=== PATIENT | female | born 1970 | race Caucasian/White ===

== ENCOUNTER 2016-07-31 18:27 | Emergency (ER) | payer BC, MEDICAID ==
[2016-07-31 18:38] VITALS: BP 167/80
[2016-07-31] MEDS ORDERED: Magnesium Sulfate/Water 2 GM in Premix Bag 1 BAG IV ONE (18:40)
[2016-07-31] MEDS: Albuterol/Ipratropium 3.0-0.5 MG/3 ML Neb Soln ONE ×2 (18:40→18:47)
[2016-07-31] MEDS ORDERED: Albuterol/Ipratropium 3.0-0.5 MG/3 ML Neb Soln ONE (18:41)
[2016-07-31] MEDS ORDERED: Sodium Chloride 0.9% 10 ML Syringe FLUSH PRN (18:42)
--- NOTE | 2016-07-31 18:47 | EDM.PDOC ---
ED HISTORY OF PRESENT ILLNESS - General Chief Complaint: Respiratory Problem Stated Complaint: SOB Time Seen by Provider: 07/31/16 18:41 Source of Information: Reports: Patient History Limitations: Reports: Respiratory distress - History of Present Illness INITIAL COMMENTS - FREE TEXT/NARRATIVE: Patient is a 45-year-old female who presents to the ED with O2 sats of 86% on room air complaining of severe respiratory distress. Patient only able to speak in few word sentences. States developed an upper respiratory infection that started approximately 2 days ago. She's been experiencing worsening shortness of breath since onset with productive cough. She been utilizing albuterol inhaler with minimal change. She notes 2 hours ago the symptoms have severely worsened thus she was brought to the ED for evaluation and treatment. Denies any history of asthma but notes is on a albuterol inhaler for intermittent wheezing, coughing, shortness of breath. She has been experiencing low grade fever. She denies any body aches. Timing/Duration: Reports: Constant, Getting worse Severity: severe Location, General: Reports: chest (tightness) Improves with: Reports: None Worsens with: Reports: Other (exertion) Context, General: Reports: Other (URI) Associated Symptoms (General): Reports: cough w sputum, fever/chills, loss of appetite, malaise, nausea/vomiting, shortness of breath. 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 (see below) (albuterol inhaler) - Related Data Allergies/ADRs: Allergies Allergy/AdvReac Type Severity Reaction Status Date / Time levofloxacin [From Levaquin] Allergy Rash Verified 07/31/16 18:30 Home Meds: Home Meds Doxycycline [Vibramycin] 100 mg PO Q12HR #20 cap 07/31/16 [Rx] Prednisone [IJD: predniSONE] 40 mg PO WITHBREAKFAST #10 tab 07/31/16 [Rx] guaiFENesin [Mucinex] 600 mg PO BID #20 tab.er.12h 07/31/16 [Rx] ED ROS GENERAL - Review of Systems Review Of Systems: See Below Constitutional: Reports: fever, chills, malaise, decreased appetite Respiratory: Reports: Shortness of Breath, Cough, Sputum Cardiovascular: Reports: Chest pain (Tightness), Dyspnea on exertion GI/Abdominal: Denies: Abdominal pain, Nausea, Vomiting ED EXAM, GENERAL - Physical Exam Exam: See Below Exam Limited By: Respiratory distress General Appearance: alert, WD/WN, severe distress Eye Exam: bilateral eye: PERRL Ears: hearing grossly normal Nose: normal inspection Throat/Mouth: Normal voice, No airway compromise Neck: normal inspection, supple Respiratory/Chest: respiratory distress, decreased breath sounds (Throughout), wheezing (Throughout all lung doan), accessory muscle use Cardiovascular: normal peripheral pulses, no murmur, tachycardia Peripheral Pulses: 2+: radial (L) GI/Abdominal: normal bowel sounds, soft, non tender Back Exam: normal inspection Extremities: normal inspection, non-tender, no pedal edema Neurological: alert, oriented, CN II-XII intact, normal cognition, no motor/ sensory deficits Psychiatric: normal affect, normal mood Skin Exam: Warm, Dry, Intact, Normal color Course - Vital Signs Last Recorded V/S: Last Vital Signs Temp 97.1 F 07/31/16 18:32 Pulse 85 07/31/16 18:32 Resp 33 H 07/31/16 18:32 BP 167/80 H 07/31/16 18:32 Pulse Ox 94 L 07/31/16 18:47 - Orders/Labs/Meds Orders: Active Orders 24 hr Category Date Time Status EKG Documentation Completion [RC] STAT Care 07/31/16 20:15 Active Peripheral IV Care [RC] . DIRECTED Care 07/31/16 18:42 Active CXR [Chest 1V Frontal] [CR] Stat Exams 07/31/16 18:43 Taken Magnesium Sulfate/Water [Magnesium Sulfate 2 GM in Med 07/31/16 18:40 Active Water 50 ML] 2 gm Premix Bag 1 bag IV ONETIME Sodium Chloride 0.9% [Saline Flush] Med 07/31/16 18:42 Active 10 ml FLUSH ASDIRECTED PRN Peripheral IV Insertion Adult [OM.PC] Routine Oth 07/31/16 18:42 Ordered Medication Orders Magnesium Sulfate 2 gm/ Premix 50 mls @ 25 mls/hr IV ONETIME ONE Stop: 07/31/16 20:39 Last Admin: 07/31/16 18:49 Dose: 25 mls/hr Sodium Chloride (Saline Flush) 10 ml FLUSH ASDIRECTED PRN PRN Reason: Keep Vein Open Last Admin: 07/31/16 18:51 Dose: 10 ml Labs: Laboratory Tests 07/31/16 07/31/16 Range/Units 18:34 18:34 WBC 10.34 H (3.98-10.04) K/mm3 RBC 4.53 (3.98-5.22) M/mm3 Hgb 13.9 (11.2-15.7) gm/L Hct 41.7 (34.1-44.9) % MCV 92.1 (79.4-94.8) fl MCH 30.7 (25.6-32.2) pg MCHC 33.3 (32.2-35.5) g/dl RDW Std Deviation 44.4 (36.4-46.3) fL Plt Count 263 (182-369) K/mm3 MPV 11.5 (9.4-12.3) fl Neut % (Auto) 75.1 H (34.0-71.1) % Lymph % (Auto) 11.8 L (19.3-51.7) % Andrew % (Auto) 7.7 (4.7-12.5) % Eos % (Auto) 4.7 (0.7-5.8) Baso % (Auto) 0.6 (0.1-1.2) % Neut # 7.76 H (1.56-6.13) K/mm3 Lymph # 1.22 (1.18-3.74) K/mm3 Andrew # 0.80 H (0.24-0.36) K/mm3 Eos # 0.49 H (0.04-0.36) K/mm3 Baso # 0.06 (0.01-0.08) K/mm3 Sodium 138 (136-145) mEq/L Potassium 4.1 (3.5-5.1) mEq/L Chloride 102 (98-107) mEq/L Carbon Dioxide 24 (21-32) mEq/L Anion Gap 16.1 H (5-15) BUN 10 (7-18) mg/dL Creatinine 0.8 (0.55-1.02) mg/dL Est Cr Clr Drug Dosing 88.18 mL/min Estimated GFR (MDRD) > 60 (>60) mL/min BUN/Creatinine Ratio 12.5 L (14-18) Glucose 110 H (74-106) mg/dL Calcium 8.5 (8.5-10.1) mg/dL Total Bilirubin 0.3 (0.2-1.0) mg/dL AST 22 (15-37) U/L ALT 31 (14-59) U/L Alkaline Phosphatase 45 L (46-116) U/L Troponin I < 0.017 (0.00-0.056) ng/mL C-Reactive Protein 4.3 H* (<1.0) mg/dL Total Protein 7.5 (6.4-8.2) g/dl Albumin 3.6 (3.4-5.0) g/dl Globulin 3.9 gm/dL Albumin/Globulin Ratio 0.9 L (1-2) Meds: Medications Generic Name Dose Route Start Last Admin Trade Name Freq PRN Reason Stop Dose Admin Magnesium Sulfate 2 gm/ Premix 50 mls @ 25 mls/hr 07/31/16 18:40 07/31/16 18: 49 IV 07/31/16 20:39 25 mls/hr ONETIME ONE Administration Sodium Chloride 10 ml 07/31/16 18:42 07/31/16 18:51 Saline Flush FLUSH 10 ml ASDIRECTED PRN Administration Keep Vein Open Discontinued Medications Generic Name Dose Route Start Last Admin Trade Name Freq PRN Reason Stop Dose Admin Albuterol/Ipratropium Confirm 07/31/16 18:38 07/31/16 18:47 Duoneb 3.0-0.5 Mg/3 Ml Administered 07/31/16 18:39 3 ml Dose Administration 3 ml .ROUTE .STK-MED ONE Albuterol/Ipratropium Confirm 07/31/16 18:41 07/31/16 18:47 Duoneb 3.0-0.5 Mg/3 Ml Administered 07/31/16 18:42 Not Given Dose 3 ml .ROUTE .STK-MED ONE Doxycycline Hyclate 200 mg 07/31/16 19:38 07/31/16 19:48 Vibramycin PO 07/31/16 19:39 200 mg ONETIME ONE Administration Ceftriaxone Sodium 1 gm/ 100 mls @ 200 mls/hr 07/31/16 19:37 Sodium Chloride IV 07/31/16 20:06 ONETIME ONE Prednisone 40 mg 07/31/16 19:01 07/31/16 19:12 Prednisone PO 07/31/16 19:02 40 mg ONETIME ONE Administration - Re-Assessments/Exams Free Text/Narrative Re-Assessment/Exam: Patient is a 42-year-old female who presents to the ED in severe respiratory distress. O2 sats or 86% on room air. Patient increased respiratory rate only able to speak in few word sentences. Examination listed decreased breath sounds with global expiratory wheezes and rhonchi to the bases. Patient was immediately placed on nasal cannula 2 L per minute brain are SpO2 sats in the low 90s. DuoNeb x2 was ordered. With administration of these nebulized treatments patients respiratory status significantly improved. Will obtain CXR , EKG, and blood work. Ordered 2g magnesium and prednisone 40 mg PO. 07/31/16 19:09 Reassessment, patient's work of breathing has improved after administration of the breathing treatments. She still has some intermittent bilateral expiratory wheezes. Vital signs are stable. 07/31/16 19:11 07/31/16 19:25 per nursing staff patient mentioned to them that she is on prednisone when she has similar respiratory symptoms. 193: X-ray reviewed with Dr. Vasquez, questionable right lower lobe infiltration. 07/31/16 19:34 labs reviewed: Blood cell count 10.34, hemoglobin is 13.9, neutrophil percent is 75.1, neutrophil #0.76, sodium 138, potassium 4.1, CO2 24 , creatinine 0.8, troponin less than 0.017, CRP is 4.3. Physical examination and findings consistent for right lower lobe pneumonia. Ordered rocephin 1 gram IVP and doxycycline 200mg mg PO. 07/31/16 19:39 reassessment, vital signs are stable. SpO2 is 99% on 2 L of supplemental 02. Respiratory rate is 19. 07/31/16 20:15 EKG: Sinus rhythm rate 82, with no acute ST changes noted. Patients SPO2 is 95% on room air. States she is feeling much better. Will discharge home once rocephin has been administered. Discharge instructions and prescriptions have been completed. Departure - Departure Time of Disposition: 20:10 Disposition: Home, Self-Care 01 Condition: fair Clinical Impression: Community acquired pneumonia Prescriptions: Doxycycline [Vibramycin] 100 mg PO Q12HR #20 cap Prednisone [IJD: predniSONE] 40 mg PO WITHBREAKFAST #10 tab guaiFENesin [Mucinex] 600 mg PO BID #20 tab.er.12h Referrals: Susie Bryant DO [Primary Care Provider] - Forms: ED Department Discharge, Return to Work/School Form Additional Instructions: Take the doxycycline, prednisone, mucinex as prescribed. Take 1-2 puffs of albuterol inhaler every 4 hours as needed for shortness of breath, wheezing, and cough. Followup with PCP at the conclusion of therapy to ensure resolution. Return to the E.D. for any new or worsening symptoms. - My Orders Last 24 Hours: My Active Orders 07/31/16 18:40 Magnesium Sulfate/Water [Magnesium Sulfate 2 GM in Water 50 ML] 2 gm Premix Bag 1 bag IV ONETIME 07/31/16 18:42 Peripheral IV Care [RC] . DIRECTED Sodium Chloride 0.9% [Saline Flush] 10 ml FLUSH ASDIRECTED PRN Peripheral IV Insertion Adult [OM.PC] Routine 07/31/16 18:43 CXR [Chest 1V Frontal] [CR] Stat 07/31/16 20:15 EKG Documentation Completion [RC] STAT - Assessment/Plan Last 24 Hours: My Active Orders 07/31/16 18:40 Magnesium Sulfate/Water [Magnesium Sulfate 2 GM in Water 50 ML] 2 gm Premix Bag 1 bag IV ONETIME 07/31/16 18:42 Peripheral IV Care [RC] . DIRECTED Sodium Chloride 0.9% [Saline Flush] 10 ml FLUSH ASDIRECTED PRN Peripheral IV Insertion Adult [OM.PC] Routine 07/31/16 18:43 CXR [Chest 1V Frontal] [CR] Stat 07/31/16 20:15 EKG Documentation Completion [RC] STAT
[2016-07-31] MEDS ORDERED: predniSONE 20 MG Tab PO ONE (19:01)
[2016-07-31] MEDS ORDERED: cefTRIAXone 1 GM in Sodium Chloride 0.9% 100 ML IV ONE (19:37)
[2016-07-31] MEDS ORDERED: Doxycycline 100 MG Cap PO ONE (19:38)
--- NOTE | 2016-08-01 08:40 | CR ---
Chest: Portable view of the chest was obtained. Comparison: No previous study. Heart size and mediastinum are within normal limits. Lung markings are slightly increased within the right base believed to be incidental. No acute infiltrates are definitely seen. Bony structures are grossly intact. Impression: 1. Nothing acute is appreciated on portable chest x-ray. If patient remains symptomatic, two-view chest x-ray then recommended. Diagnostic code #2
== END 2016-07-31 21:15 | disposition home or self-care (01) ==
LOC: SUPCPDRO 18:27 → JD.ED 18:27
DX: J18.9 Pneumonia, unspecified organism (principal); Z79.899 Other long term (current) drug therapy
CPT/HCPCS: 36415; 71010; 80053; 84484; 85025; 86140; 93005; 94640; 94664; 96365; 96366; 96367; 99285; A9270; J0696; J7030; J7050; 99284; J3475

== ENCOUNTER 2016-12-15 09:03 | Emergency (ER) | payer BC ==
[2016-12-15] MEDS ORDERED: HYDROmorphone 1 MG/ML Syringe IM ONE (09:34)
--- NOTE | 2016-12-15 09:34 | EDM.PDOC ---
ED HPI GENERAL MEDICAL PROBLEM - General Chief Complaint: Back Pain or Injury Stated Complaint: BACK PAIN Time Seen by Provider: 12/15/16 09:28 Source of Information: Reports: Patient History Limitations: Reports: No Limitations - History of Present Illness INITIAL COMMENTS - FREE TEXT/NARRATIVE: 46-year-old female presents to the ED with a acute low back pain. She states this happened at work while pushing a large printer into its position. She will became aware of a sudden pop and strain in her low back and the pain is increased in intensity over the last 48 hours to the point that she can barely stand erect or hardly get out of bed. Eating and out of the vehicle is extremely difficult. Pain is into the right upper buttock but not down the posterior leg. He said occasional pains in her low back but never to this severity. Advil and Aleve are not helping the pain. She hasn't slept for the last 2 nights. Onset: Sudden Onset Date: 12/13/16 Onset Time: 14:00 Duration: Day(s): Location: Reports: Back (Right lower back) Quality: Reports: Ache, Stabbing, Throbbing, Other Severity: Severe (Hurts to deep breathe currently relates the pain as 10 out 10 with movement 8 out of 10 at rest.) Improves with: Reports: Rest Worsens with: Reports: Other (Standing and getting in and out of a car.), Movement Context: Reports: Activity (Pushing a machine back into place.). Denies: Exercise, Lifting, Sick Contact Associated Symptoms: Reports: No Other Symptoms Treatments GASKET FORMER: Reports: NSAIDS Back Pain Score (Numeric/FACES): 10 - Related Data Allergies Allergy/AdvReac Type Severity Reaction Status Date / Time levofloxacin [From Levaquin] Allergy Rash Verified 07/31/16 18:30 Home Meds: Home Meds Citalopram Hydrobromide [Celexa] 40 mg PO DAILY 12/15/16 [History] Diclofenac Sodium [Voltaren] 50 mg PO TIDMEALS #30 tab.ec 12/15/16 [Rx] Propranolol [Inderal] 0 mg PO DAILY 12/15/16 [History] buPROPion [Wellbutrin] 150 mg PO DAILY 12/15/16 [History] l-Norgest/E.estradion-E.estrad [Seasonique 0.15-0.03-0.01] 1 tab PO DAILY [History] oxyCODONE HCl/Acetaminophen [Percocet 5-325 mg Tablet] 1 - 2 each PO Q4H PRN # 20 tablet 12/15/16 [Rx] predniSONE [Deltasone] 20 mg PO ASDIRECTED #15 tablet 12/15/16 [Rx] Past Medical History Respiratory History: Reports: Asthma Musculoskeletal History: Reports: Arthritis, Back Pain, Chronic, Other (See Below) Other Musculoskeletal History: 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 Neurological History: Reports: Migraines Psychiatric History: Reports: None, Anxiety Social & Family History - Tobacco Use Smoking Status *Q: Never Smoker Second Hand Smoke Exposure: No - Caffeine Use Caffeine Use: Reports: Soda - Recreational Drug Use Recreational Drug Use: No - Living Situation & Occupation Living situation: Reports: , Single Occupation: Employed ED ROS GENERAL - Review of Systems Review Of Systems: See Below Constitutional: Reports: No Symptoms HEENT: Reports: No Symptoms Respiratory: Reports: No Symptoms, Other Cardiovascular: Reports: No Symptoms (Deep breathing makes her right back pain worse.) Endocrine: Reports: No Symptoms GI/Abdominal: Reports: No Symptoms : Reports: No Symptoms Musculoskeletal: Reports: Back Pain Skin: Reports: No Symptoms (See history of present illness) Neurological: Reports: No Symptoms Psychiatric: Reports: No Symptoms Hematologic/Lymphatic: Reports: No Symptoms Immunologic: Reports: No Symptoms ED EXAM,LOWER BACK PAIN/INJURY - Physical Exam Exam: See Below Exam Limited By: No Limitations General Appearance: Alert, Moderate Distress Back Exam: Muscle Spasm (Patient has marked paraspinal muscle spasm on the right side traveling up his highest T6. Point of maximal tenderness appears to be L3-L4 or L4-L5 and L5-S1 facet joints. There is moderate pain throughout the superior half of the right SI joint as well.) Extremities: Normal Inspection ( Is no pain on the left side.), Normal Range of Motion, Non-Tender, No Pedal Edema Neurological: Normal Mood/Affect, Normal Dorsiflexion, CN II-XII Intact, Normal Reflexes (Antalgic gait), Oriented x 3. No: Normal Gait DTR - Lower Extremities: 1+: Ankle (R), Ankle (L), 2+: Knee (R), Knee (L) Psychiatric: Normal Affect, Normal Mood Skin Exam: Warm, Dry, Intact, Normal Color, No Rash Lymphatic: No Adenopathy Course - Vital Signs Last Recorded V/S: Last Vital Signs Temp 35.8 C 12/15/16 09:11 Pulse 71 12/15/16 09:11 Resp 20 12/15/16 09:11 BP 115/75 12/15/16 09:11 Pulse Ox 99 12/15/16 09:11 - Orders/Labs/Meds Orders: Active Orders 24 hr Category Date Time Status Lumbar Spine 2 or 3V [CR] Stat Exams 12/15/16 09:36 Taken Meds: Medications Discontinued Medications Generic Name Dose Route Start Last Admin Trade Name Ashtyn PRN Reason Stop Dose Admin Hydromorphone HCl 1 mg 12/15/16 09:34 12/15/16 09:43 Dilaudid IM 12/15/16 09:35 1 mg ONETIME ONE Administration Promethazine HCl 25 mg 12/15/16 09:35 12/15/16 09:42 Phenergan IM 12/15/16 09:36 25 mg ONETIME ONE Administration - Radiology Interpretation Free Text/Narrative:: 46-year-old female attends the ED with severe right low back pain. Injured in the workplace on Friday she December 13 when she was pushing a large plantar back into its position she felt sudden pop and tearing sensation in her right lower back. She has marked paraspinal muscle spasm with maximal point tenderness over L4-L5 and L5-S1 facet joints on the right side. Is no evidence of nerve root irritation. Appears to be a mechanical low back pain ie. facet joint strain. Will have AP and lateral X-ray done of the lumbar spine. Will give her an IM injection of Dilaudid 1 mg with Phenergan 25 mg now to relieve pain and to provide some sedation so she get some sleep. She will be placed on Voltaren 50 mg 3 times daily for the next 10 days to relieve pain and inflammation. Prednisone 20 mg twice daily for the next 5 days and then 1 tablet in morning only for another 5 days. Percocet 5/325 milligrams tablets one or 2 every 4-6 hours for pain relief. Will likely be off work for the next 3-4 days. Advise chiropractic manipulation if amenable. - Re-Assessments/Exams Free Text/Narrative Re-Assessment/Exam: 12/15/16 10:32 x-rays of the lumbar spine reveal normal alignment. No compression fractures. There is evidence of previous trauma to the T12-L1 vertebra with anterior osteophyte formation and disc is very well gone. There is been some previous trauma to the lumbar spine in the past. Patient was advised of this finding. She will be discharged to home with a note given to be off work for the next 3 days. She'll be placed on Voltaren 50 mg 3 times daily for 10 days. Deltasone 20 mg with breakfast and supper for 5 days then 1 tablet in the morning only for another 5 days. Percocet 5/3/25 milligrams tablets one or 2 every 4-6 hours for pain relief as needed. Advised chiropractic manipulation if she is open to this suggestion. Heat pack to the area one half hour out of every 4 hours Departure - Departure Time of Disposition: 10:33 Disposition: Home, Self-Care 01 Condition: Fair Clinical Impression: Acute myofascial strain of lumbosacral region Qualifiers: Encounter type: initial encounter Qualified Code(s): S39.012A - Strain of muscle, fascia and tendon of lower back, initial encounter - Discharge Information Prescriptions: Diclofenac Sodium [Voltaren] 50 mg PO TIDMEALS #30 tab.ec oxyCODONE HCl/Acetaminophen [Percocet 5-325 mg Tablet] 1 - 2 each PO Q4H PRN # 20 tablet PRN Reason: pain relief. predniSONE [Deltasone] 20 mg PO ASDIRECTED #15 tablet Instructions: Lumbosacral Strain Referrals: Susie Bryant DO [Primary Care Provider] - Forms: ED Department Discharge, ED Return to Work/School Form Additional Instructions: Evaluation the emergency room today in regards to acute onset of severe right- sided lumbar or low back pain. Examination suggests facet joint inflammation particularly at L3-L4 L4-L5 level in the right lower back. This is causing severe paraspinal muscle spasm. X-rays of the back are within normal limits in terms of alignment and disc height. However there has been previous trauma at the lower thoracic vertebra T12 and the lumbar 1 vertebra with evidence of osteo -arthritic changes developing and the disc is nearly completely gone. This is likely because of some chronic mid low back pain. Treatment is heat packs to the area at this time for one half hour out of every 4 hours. Dedication to be anti-inflammatory Voltaren 50 mg 3 times daily for the next 10 days to reduce pain and inflammation. Percocet tabs 5/325 milligrams one or 2 every 4-6 hours needed for pain relief. Deltasone 20 mg with breakfast and supper for 5 days then 1 tab in the morning only for further 5 days to reduce pain and inflammation. Note , both the anti-inflammatory and Deltasone take good 36 hours to work. Suggest chiropractic manipulation if you are open to this suggestion. Heat pack to the area one half hour out of every 4 hours may be beneficial as well. Note written to be off work for the next 3 days until the low back pain settles. - My Orders Last 24 Hours: My Active Orders 12/15/16 09:36 Lumbar Spine 2 or 3V [CR] Stat - Assessment/Plan Last 24 Hours: My Active Orders 12/15/16 09:36 Lumbar Spine 2 or 3V [CR] Stat
[2016-12-15] MEDS ORDERED: Promethazine 25 MG/ML SDV IM ONE (09:35)
[2016-12-15 09:47] VITALS: BP 115/75
--- NOTE | 2016-12-16 08:14 | CR ---
Lumbar spine: AP and lateral views of the lumbar spine were obtained. Comparison: No previous lumbar spine imaging. Mild disc space narrowing is seen within the lower thoracic spine and at L1-L2. Mild posterior disc space narrowing is noted at L5-S1. Vertebral body heights are maintained. Scattered endplate osteophytes are seen within the lower thoracic and lumbar spine. Minimal scoliosis is present. Pedicles as well as visualized transverse and spinous processes are intact. Mild degenerative sclerosis is seen within the right sacroiliac joint. Impression: 1. Mild degenerative change as described above. Diagnostic code #2
== END 2016-12-15 10:50 | disposition home or self-care (01) ==
LOC: JD.ED 09:03
DX: S39.012A Strain of muscle, fascia and tendon of lower back, initial encounter (principal); J45.909 Unspecified asthma, uncomplicated; Z88.1 Allergy status to other antibiotic agents; Z79.899 Other long term (current) drug therapy; X50.9XXA Other and unspecified overexertion or strenuous movements or postures, initial encounter
CPT/HCPCS: 72100; 96372; 99283; J1170; J2550

== ENCOUNTER 2017-06-05 16:41 | Emergency (ER) | payer OTHER, BC ==
[2017-06-05 17:05] VITALS: BP 112/78
[2017-06-05] MEDS ORDERED: HYDROmorphone 1 MG/ML Syringe IM ONE (17:55)
[2017-06-05] MEDS ORDERED: Cyclobenzaprine 10 MG Tab PO ONE (17:56)
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
== END 2017-06-05 18:17 | disposition home or self-care (01) ==
LOC: JD.ED 16:41
DX: M54.5 Low back pain (principal); I10 Essential (primary) hypertension; J45.909 Unspecified asthma, uncomplicated; F41.9 Anxiety disorder, unspecified; Z79.899 Other long term (current) drug therapy; Z88.1 Allergy status to other antibiotic agents
CPT/HCPCS: 96372; 99283; A9270; J1170

== ENCOUNTER 2017-11-20 17:06 | Emergency (ER) | payer BC, OTHER ==
[2017-11-20] MEDS ORDERED: HYDROmorphone 0.5 MG/0.5 ML SYRINGE IVPUSH ONE ×3 (17:36→19:03)
[2017-11-20] MEDS ORDERED: Ondansetron 4 MG/2 ML SDV IVPUSH ONE (17:36)
[2017-11-20] MEDS ORDERED: Sodium Chloride 0.9% 10 ML Syringe FLUSH PRN (17:36)
[2017-11-20] MEDS ORDERED: Bacitracin Oint 15 GM Tube TOP ONE (18:46)
[2017-11-20] MEDS ORDERED: Ketorolac 30 MG/ML SDV IVPUSH ONE (19:23)
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
[2017-11-20 22:08] VITALS: BP 132/74
== END 2017-11-20 20:59 | disposition home or self-care (01) ==
LOC: JD.ED 17:06
DX: T23.202A Burn of second degree of left hand, unspecified site, initial encounter (principal); T23.172A Burn of first degree of left wrist, initial encounter; I10 Essential (primary) hypertension; J45.909 Unspecified asthma, uncomplicated; Z88.1 Allergy status to other antibiotic agents; Z79.899 Other long term (current) drug therapy; X08.8XXA Exposure to other specified smoke, fire and flames, initial encounter
CPT/HCPCS: 96374; 96375; 96376; 99284; A9270; J1170; J1885; J2405; J7050

== ENCOUNTER 2018-01-02 07:00 | Day surgery (SDC) | payer BC ==
[~2018-01-02 07:00] MED LIST: Lactated Ringers 1,000 ML IV SCH; Lidocaine 1%/Sod Bicarbonate in NS 8.4% 1 ML Syringe IDERM PRN; Sodium Chloride 0.9% 10 ML Syringe FLUSH PRN
[2018-01-02] MEDS ORDERED: fentaNYL 100 MCG/2 ML SDV ONE (07:19)
[2018-01-02] MEDS ORDERED: Propofol 200 MG/20 ML SDV ONE ×2 (07:19→07:55)
[2018-01-02] MEDS ORDERED: Lidocaine 1% 4 ML ONE (07:20)
--- NOTE | 2018-01-02 07:36 | PCM.PREANE ---
Preanesthetic Assessment - Procedure Proposed Procedure: EGD with biopsy - Anesthesia/Transfusion/Family Hx Anesthesia History: No Prior Anesthesia Family History of Anesthesia Reaction: No Transfusion History: No Prior Transfusion(s) - Review of Systems General: No Symptoms Pulmonary: Other (asthma, uses albuterol inhaler prn sparingly ) Cardiovascular: No Symptoms Gastrointestinal: Other (GERD) Neurological: Headache (occasional migraine) Other: Reports: Depression, Anxiety - Physical Assessment NPO Status Date: 01/01/18 NPO Status Time: 21:00 Pulse: 66 O2 Sat by Pulse Oximetry: 95 Respiratory Rate: 16 Blood Pressure: 111/66 Temperature: 36.5 C Height: 1.7 m Weight: 111 kg ASA Class: 2 Mental Status: Alert & Oriented x3 Airway Class: Mallampati = 1 Dentition: Reports: Normal Dentition Thyro-Mental Finger Breadths: 3 Mouth Opening Finger Breadths: 3 ROM/Head Extension: Full Lungs: Clear to Auscultation, Normal Respiratory Effort Cardiovascular: Regular Rate, Regular Rhythm - Allergies Allergies/Adverse Reactions: Allergies Allergy/AdvReac Type Severity Reaction Status Date / Time levofloxacin [From Levaquin] Allergy Rash Verified 11/20/17 21:56 - Blood Blood Available: No Product(s) Available: None - Anesthesia Plan Pre-Op Medication Ordered: None Beta Leta: Propranolol (for migraines) Med Last Dose Date: 01/01/18 Med Last Dose Time: 19:00 - Acknowledgements Anesthesia Type Planned: MAC Pt an Appropriate Candidate for the Planned Anesthesia: Yes Alternatives and Risks of Anesthesia Discussed w Pt/Guardian: Yes Pt/Guardian Understands and Agrees with Anesthesia Plan: Yes PreAnesthesia Questionnaire Cardiovascular History: Reports: Hypertension Respiratory History: Reports: Asthma Musculoskeletal History: Reports: Arthritis, Back Pain, Chronic, Other (See Below) Other Musculoskeletal History: 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 Neurological History: Reports: Migraines Psychiatric History: Reports: None, Anxiety - SUBSTANCE USE Smoking Status *Q: Never Smoker Second Hand Smoke Exposure: No Recreational Drug Use History: No - HOME MEDS Home Medications: Home Meds Propranolol [Inderal] 0 mg PO BEDTIME 12/15/16 [History] buPROPion [Wellbutrin] 150 mg PO DAILY 12/15/16 [History] Acetaminophen/oxyCODONE [Percocet 325-5 MG] 1 tab PO Q4HR PRN #30 tab 11/20/17 [ Rx] Diclofenac Potassium [Zipsor] 25 mg PO DAILY PRN 11/20/17 [History] Seraquil 10 mg PO DAILY 11/20/17 [History] Vortioxetine Hydrobromide [Trintellix] 30 mg PO DAILY 11/20/17 [History] - CURRENT (IN HOUSE) MEDS Current Meds: Current Medications Lactated Ringer's (Ringers, Lactated) 1,000 mls @ 125 mls/hr IV ASDIRECTED JACKIE Stop: 01/02/18 23:00 Lidocaine/Sodium Bicarbonate (Buffered Lidocaine 1% In Ns 8.4%) 0.25 ml IDERM ONETIME PRN PRN Reason: Prior to IV Start Stop: 01/02/18 18:00 Sodium Chloride (Saline Flush) 10 ml FLUSH ASDIRECTED PRN PRN Reason: Keep Vein Open Stop: 01/02/18 18:00 Discontinued Medications Fentanyl (Sublimaze) Confirm Administered Dose 100 mcg .ROUTE .STK-MED ONE Stop: 01/02/18 07:20 Lidocaine HCl (Xylocaine-Mpf 1%) Confirm Administered Dose 4 mls @ as directed .ROUTE .STK-MED ONE Stop: 01/02/18 07:21 Propofol (Diprivan 20 Ml) Confirm Administered Dose 200 mg .ROUTE .STK-MED ONE Stop: 01/02/18 07:20
--- NOTE | 2018-01-02 08:05 | PCM48HPAN ---
Post Anesthesia Note - EVALUATION WITHIN 48HRS OF ANESTHETIC Vital Signs in Normal Range: Yes Patient Participated in Evaluation: Yes Respiratory Function Stable: Yes Airway Patent: Yes Cardiovascular Function Stable: Yes Hydration Status Stable: Yes Pain Control Satisfactory: Yes Nausea and Vomiting Control Satisfactory: Yes Mental Status Recovered: Yes Pulse Rate: 64 SaO2: 97 Resp Rate: 16 Temperature: 36.2 C Blood Pressure: 114/77
--- NOTE | 2018-01-02 08:13 | PCM.OPNOTE ---
- General Post-Op/Procedure Note Date of Surgery/Procedure: 01/02/18 Operative Procedure(s): EGD with biopsy Findings: Normal anatomy Pre Op Diagnosis: GERD Post-Op Diagnosis: GERD Anesthesia Technique: MAC Primary Surgeon: Renetta Griffiths Anesthesia Provider: Marin Toribio Pathology: 1. Biopsy of GE junction 2. Biopsy of antrum for H. pylori 3. Biopsy of fundus Fluid Replacement, Intraop: 0 (see anesthesia record) Output, Urine Amount: 0 EBL in mLs: 0 Complications: None apparent Condition: Good
--- NOTE | 2018-01-02 08:21 | PCM.PRNOTE ---
- Free Text/Narrative Note: Operative Report Date of procedure: 01/02/18 Preoperative diagnosis: GERD Postoperative diagnosis: GERD Surgeon: Renetta Griffiths M.D. Procedure: EGD with biopsy Anesthesia: MAC Anesthesiologist: Marin Toribio CRNA IV fluids: see anesthesia record Estimated blood loss: 0 mL Specimens: 1. Biopsy of GE junction 2. Biopsy of Antrum for H. Pylori 3. Biopsy of fundus Indication: The patient is a 47 -year-old lady who presented with a history of longstanding GERD. The patient's main complaint was recurrence of symptoms when attempting to wean her PPI. She had never undergone a screening or surveillance EGD. The patient was consented for an EGD with intervention. Risk of bleeding and perforation were discussed. The patient's consent was obtained Description of the procedure: The patient was taken to the endoscopy suite and placed on hemodynamic monitoring. The nurse assembler dielectric heater induced MAC anesthesia. A bite block was placed. The patient was positioned in the left lateral decubitus position. A timeout was performed. The endoscope was gently placed into the mouth to the back of the pharynx and introduced into the esophagus. The scope was gently advanced under direct visualization down to the level of the lower esophageal sphincter. The Z line was noted at 38 cm from the mouth. Biopsies were taken of the mucosa at the Z- line. The stomach was then entered. Normal rugal folds were noted. The scope was advanced into the antrum. We noted no abnormality. The antrum was biopsied for H. pylori. The pylorus was then entered and the first and second portion of the duodenum was inspected. There were no ulcerations in the duodenum. The scope was then retroflexed in the cardia and fundus were investigated. There is no evidence of any hiatal hernia. The fundal mucosa had a slight polypoid appearance, and a biopsy was taken. No other abnormalities were noted. The scope was then withdrawn while inspecting the esophagus. There was no esophagitis. The procedure was terminated. the patient tolerated the procedure well without any evidence of complications. Instructions: The patient will return to the PACU and may resume clear liquid diet and advance as tolerated. She will be maintained on a PPI. Plan for reevaluation with repeat scope pending her pathology. Renetta Griffiths MD General Surgery
[2018-01-02 08:44] VITALS: BP 118/61
== END 2018-01-02 08:44 | disposition home or self-care (01) ==
LOC: JD.SDS 07:00
PROVIDERS: ATTEND Surgery
DX: K21.9 Gastro-esophageal reflux disease without esophagitis (principal); K29.50 Unspecified chronic gastritis without bleeding; K20.0 Eosinophilic esophagitis; G43.909 Migraine, unspecified, not intractable, without status migrainosus; I10 Essential (primary) hypertension; M17.10 Unilateral primary osteoarthritis, unspecified knee; J45.20 Mild intermittent asthma, uncomplicated; J30.1 Allergic rhinitis due to pollen; F41.9 Anxiety disorder, unspecified; E66.01 Morbid (severe) obesity due to excess calories; Z68.41 Body mass index [BMI] 40.0-44.9, adult; Z79.899 Other long term (current) drug therapy
CPT/HCPCS: 43239; 81025; J2704; J3010; J7120; 00731; J2001